=== PATIENT | female | born 1985 | race Caucasian/White ===

== ENCOUNTER 2019-12-16 06:16 | Inpatient (IN) | payer SELFPAY ==
[2019-12-16] VITALS (26 sets, daily range): BP systolic 113–137; BP diastolic 70–94; PULSE 99–127; RESP 18–37; TEMP 36.2–38.5; O2SAT 91–98; BMI 15.0
--- NOTE | 2019-12-16 06:39 | ECG_ITS ---
[facility] Test Date: 2019-12-16 Pat Name: Mónica Ko Department: Room: Gender: Female Manager System: : 1985 Requested By: Noelle Braun Order Number: [id number] Lynnette MD: Farshad Pollack M.D. Measurements Intervals [place] Rate: 112 P: 67 [place]: 177 QRS: 73 QRSD: 82 T: 70 QT: 378 QTc: 518 Interpretive Statements SINUS TACHYCARDIA POSSIBLE LEFT ATRIAL ENLARGEMENT [-0.1mV P WAVE IN V1/V2] MODERATE T-WAVE ABNORMALITY, CONSIDER ANTERIOR ISCHEMIA [-0.1+ mV T WAVE IN V3/V4] Compared to ECG 05/18/2018 23:05:40 T-wave abnormality now present Possible ischemia now present Incomplete right bundle-branch block no longer present Electronically Signed On 12-16-2019 10:27:56 CDT by Farshad Pollack M.D. [id number]
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
[2019-12-16] MEDS: sodium chloride 0.9% 1,000 ML 999 ML IV (06:51)
[2019-12-16] MEDS: famotidine 20 mg/2 mL INJ 40 MG IVP (06:52)
[2019-12-16] MEDS: LORazepam 2 mg/mL INJ 1 mL 1 MG IVP ×2 (06:52→07:46)
[2019-12-16] MEDS: ondansetron 2 mg/ML SDV 2 mL 4 MG IVP (06:52)
[2019-12-16 07:00] LABS: Glucose Point of Care 258 mg/dL (70-110)
[2019-12-16 07:10] LABS: Basophils % 0.4 %; Hematocrit 45.8 % (37.0-47.0); Hemoglobin 16.1 g/dL (11.5-15.3); Lymphocytes # 0.4 10^3/uL (0.8-4.8); Lymphocytes % 6.6 %; Mean Corpuscular HGB Conc 35.2 g/dL (30.0-36.0); Mean Corpuscular Hemoglobin 34.7 pg (28.0-34.0); Mean Corpuscular Volume 98.7 fL (81-99); Mean Platelet Volume 12.4 fL (7.4-10.4); Monocytes # 0.2 10^3/uL (0.2-0.9); Monocytes % 2.7 %; Neutrophils # 4.94 10^3/uL (1.8-7.7); Neutrophils % 90.1 %; Nucleated Red Blood Cells % 0 %; Platelet Count 32 10^3/cmm (130-400); Red Blood Count 4.64 10^6/uL (4.1-5.3); Red Cell Distribution Width 11.8 % (12.1-15.1); White Blood Count 5.5 10^3/uL (4.0-10.0)
[2019-12-16 07:33] LABS: HCG, Serum Qual Negative (Negative); Ketone (Acetest) Serum Negative (Negative)
[2019-12-16 07:34] LABS: Alanine Aminotransferase 58 U/L (0-33); Albumin Level 4.2 g/dL (3.5-5.2); Alkaline Phosphatase 127 IU/L (35-105); Blood Urea Nitrogen 4 mg/dL (6-20); Calcium 9.5 mg/dL (8.5-10.5); Carbon Dioxide 23 mmol/L (22-29); Chloride 79 mmol/L (98-107); Creatinine Clr Calc Pharmacy 77.1099; Globulin 2.7 g/dL (1.3-4.6); Glomerular Filtration Rate 115.9 mL/min (90-130); Glucose 242 mg/dL (65-115); Lipase 24 U/L (13-60); Magnesium 1.1 mg/dL (1.7-2.3); Osmolality Calculated 276 mOsm/kg (285-295); Sodium 131 mmol/L (136-145); Total Bilirubin 1.4 mg/dL (0.15-1.2); Total Protein 6.9 g/dL (6.6-8.7)
[2019-12-16 07:35] LABS: INR 0.95 (0.8-1.2)
[2019-12-16 07:43] LABS: ABG PCO2 31.4 mmHg (35-45); ABG PH Result 7.54 (7.35-7.45); Arterial Blood Gas Hematocrit 43.7 % (37-47); Base Excess ABG 4.8 mmol/L (-2.0-2.0); Blood Gas Operator Identificat amh; Blood Gas Sample Site Brachial, right; Blood Gas Sample Type Arterial; HCO3 ABG 26.9 mmol/L (22-26); Oxygen Device ROOM AIR; PO2 ABG 69.4 mmHg (80.0-100.0)
[2019-12-16] MEDS: magnesium sulfate premix 2 GM/50 ML PIGGYBACK IV (07:47)
[2019-12-16 08:27] LABS: Alcohol Level < 10 mg/dL (0-10)
[2019-12-16 08:29] LABS: Anion Gap 31.3 (5-19)
[2019-12-16 08:31] LABS: Aspartate Amino Transferase 96 U/L (0-32); Potassium 2.3 mmol/L (3.5-5.1)
[2019-12-16 08:33] LABS: Lactate (Lactic Acid level) 14.5 mmol/L (0.5-2.2)
--- NOTE | 2019-12-16 08:42 | XRR_ITS ---
PROCEDURE INFORMATION: Exam: XR Chest, 1 View Exam date and time: 12/16/2019 9:13 AM Age: 34 years old Clinical indication: Tachypnea; Patient HX: Recent panic attack TECHNIQUE: Imaging protocol: XR of the chest Views: 1 view. COMPARISON: CR Chest 1 [place] [id number] 10/21/2018 1:01 PM FINDINGS: Lungs: Extensive left basilar airspace disease, consistent with infiltrate, in the appropriate clinical setting. Hyperinflation and interstitial prominence. Pleural space: Small suspected left pleural effusion. Heart/Mediastinum: No cardiomegaly. Bones/joints: Unremarkable. XR/XR chest 1V portable [id number] IMPRESSION: 1. Extensive left basilar airspace disease, consistent with infiltrate, in the appropriate clinical setting. 2. Small suspected left pleural effusion.
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
[2019-12-16] MEDS: potassium chloride premix 40 MEQ/100 ML PREMIX 25 MEQ IV ×2 (09:16→14:57)
[2019-12-16] MEDS: iohexol 300 mg/mL 100 mL Btl IV (09:58)
--- NOTE | 2019-12-16 11:35 | PM.HP ---
Providers/Chief Complaint Admitting Physician: Adore Rachel MD Primary Care Provider: Nina Bright, VENEER GRADER-C Chief Complaint: PANIC ATTACK History of Present Illness Mónica Ko is a 34 year old female with past medical history of alcohol abuse and withdrawal was been admitted here in the past with suicidal ideation, who presented to the ED today with chief complaint of a panic attack. She states that she was in her usual state of health until about a week ago when she started to experience increased generalized weakness and lethargy. She states she has lost 80 pounds over the past week, though I suspect it has been a lot longer than that. He is complaining of some generalized abdominal pain, multiple episodes of nausea and vomiting, cough over the past week, black tarry stools as well when I asked her specifically. It is very difficult to obtain a history from her but she does not offer too many details apart from saying that she had a panic attack and her called the ambulance. On presentation to the ER she was noted to have multiple lab abnormalities including thrombocytopenia with platelet of 32 which is new for her. She is also noted to have a left lower lobe pneumonia on CT of the chest which may represent aspiration of vomitus contents. She had a hypokalemia with potassium of 2.3 and hypomagnesemia with magnesium of 1.1. Lactate 14. LFTs are also deranged. she looks severely malnourished with a BMI of only 15. She weighs 36 kg. Urine test is negative. Denies any bleeding from any other site except for the black tarry stools. She denies any fevers recently. There is no blood alcohol detected right now. States her last drink was 2 days ago. Denies any history of illicit drug use. no urine drug screen. States that she has not eaten in about one week. Review of Systems General: Reports: 10 or more systems reviewed and unremarkable except in HPI and below Const: Denies: fever(s), chills or body aches Eyes: Denies: change in vision, blurry vision or photophobia ENMT: Reports: hoarseness; Denies: throat pain, enlarged tonsils, odynophagia or nasal congestion Card: Denies: chest pain, palpitations, irregular heart rhythm, edema, swelling of feet/ankles, lightheadedness, pre-syncope, dyspnea on exertion or orthopnea Resp: Denies: dyspnea, productive cough, non-productive cough, wheezing, stridor, pain on inspiration, change in phlegm color, hemoptysis or chest congestion GI: Denies: abdominal pain, nausea, vomiting, hematemesis, coffee ground emesis, dysphagia, heartburn, diarrhea, constipation, GI cramping, change in stool character, hematochezia or melena : Denies: flank pain, difficulty voiding, dysuria, urinary frequency, urinary urgency, urinary hesitancy or hematuria Musc: Denies: neck pain, back pain, extremity pain, joint swelling, joint warmth or deformity Neuro: Denies: headache(s), numbness in extremities, weakness in extremities, sensory changes, difficulty walking, frequent falls, dizziness, vertigo, behavioral changes, Slurred speech present or seizure-like activity Psych: Denies: anxiety, depression, suicidal ideation or homicidal ideation Endo: Denies: polyuria, polydipsia, tired all the time, cold intolerance or hot flashes Michael/Lymph: Denies: easy bruising or easy bleeding Medications/Allergies Allergies Allergy/AdvReac Type Severity Reaction Status Date / Time No Known Allergies Allergy Verified 12/16/19 06:25 PFSH Acute PFSH: Medical History (Updated 12/16/19 @ 11:51 by Adore Rachel MD) Alcohol abuse Suicidal ideation Social History Smoking and tobacco status: current every day smoker Alcohol intake: current Alcohol intake frequency: other Alcohol type: beer Vitals/I&O/Wt Last Vital Signs Temp 97.2 F L 12/16/19 06:25 Pulse 119 H 12/16/19 10:09 Resp 19 H 12/16/19 10:09 BP 117/89 12/16/19 09:52 Pulse Ox 98 12/16/19 09:52 12/15/19 12/16/19 12/16/19 22:59 06:59 14:59 Intake Total 1050 / 1050 Balance 1050 / 1050 Weight last 48 hrs Weight 36.287 kg Physical Exam Narrative: EXAM NARRATIVE: GEN: Awake, alert and oriented, no acute distress , grossly malnourished, BMI 15, chronically ill appearing lady HEENT: edentulous , says her teeth were rotten , she waers dentures but does not have them currently, oropharyngeal candidiasis+ CVS: S1S2 N RS: CTA B/L Abd: Soft, nt/nd , bs+ , discomfort to palpation + MEDICAL RECORDS LIBRARY PROFESSOR: no focal neuro deficits Urinary Catheter Management^: Hernandez: Cath Placed During This Visit: yes Reason for Continuing Indwelling Catheter: Accurate Measurement of Urinary Output in Critically Ill Patients Urinary Catheter Date of Insertion: 12/16/19 Urinary Catheter Time of Insertion: 09:35 Data : 12/16/19 06:45 12/16/19 06:45 A&P Assessment and plan (1) Alcohol withdrawal: Status: Acute Qualifiers: Complication of substance-induced condition: with unspecified complication Qualified Code(s): F10.239 - Alcohol dependence with withdrawal, unspecified (2) Alcohol abuse: Status: Acute (3) Acute hypokalemia: Status: Acute (4) Hypomagnesemia: Status: Acute (5) Acidosis, lactic: Status: Acute (6) Left lower lobe pneumonia: Status: Acute Qualifiers: Pneumonia type: due to unspecified organism Qualified Code(s): J18.9 - Pneumonia, unspecified organism (7) Thrombocytopenia: Status: Acute (8) Oropharyngeal candidiasis: Status: Acute (9) Black stools: Status: Acute (10) Alcoholic hepatitis: Status: Acute Additional A&P Information Admit to ICU in view of alcohol withdrawal 1. h/o alcohol abuse, currently in withdrawal Suspect that the panic attack described by her may be related to alcohol withdrawal symptoms. She is currently is anxious, has coarse tremors. Assess CIWA score every 4 hours Use Ativan 2 mg IV push as determined by the CIWA score Aspiration precautions Seizure precautions #2 hypokalemia: Currently being repleted with IV potassium 3. Hypomagnesemia currently being repleted with IV mag the same 4. Lactic acidosis most likely related to dehydration from excessive nausea vomiting and GI losses in combination with malnutrition improving with hydration from 14-5. #5. Left lower lobe bronchopneumonia, suspected to be aspiration, however cannot rule out community acquired pneumonia Since been of cough over the past week. Empiric ceftriaxone and azithromycin to continue.. no current fever or leukocytosis. Check urine Legionella antigen. No known contact with covered persons, however will rule out by checking COVID-19 nasopharyngeal PCR #6 thrombocytopenia of unclear chronicity. Suspect this may be related to excessive alcohol use. Will check vitamin B12, folate levels. No spleno megaly has been noted on CAT scan of the abdomen #7 transaminitis, appears to be indicative of hepatitis, likely alcohol hepatitis. CT of the abdomen with diffuse fatty infiltration of the liver. No biliary ductal dilatation. No pancreatic mass or dilatation. Incidentally noted gastric antral wall thickening with dilated fluid-filled proximal stomach. No evidence of obstruction at this present time. There is mild wall thickening noted in the nondistended right colon. No acute visceral or bony injury in the abdomen or pelvis. Noted wall thickening in the nondistended esophagus. Together with oropharyngeal, cannot exclude esophageal candidiasis Check hepatitis serology #8 oropharyngeal candidiasis, with noted wall thickening in the esophagus which may be indicative of esophageal candidiasis. Start fluconazole 100 mg p.o. daily. given weight loss of 80 pounds, cachectic appearance, malnutrition, thrombocytopenia, suspected esophageal candidiasis, will screen for HIV. # Black tarry stools, check fecal occult blood. Protonix 40 mg IV every 12 in the interim. # vitamin C supplementation as cannot rule out scurvy Full code DVT ppx: contraindicated due to plt 32 Attestations Medical Necessity Statement*: needs >2 midnight admission for management of alcohol withdrawal, IV fluids, repletion of elctrolyte loss, treatment of pneumonia Coding Level of Care Code Acute Post Doc Fellowship for [facility] Fwd Diagnoses Alcohol withdrawal F10.239 Complication of substance-induced condition: with unspecified complication Alcohol abuse F10.10 Acute hypokalemia E87.6 Hypomagnesemia E83.42 Acidosis, lactic E87.2 Left lower lobe pneumonia J18.9 Pneumonia type: due to unspecified organism Thrombocytopenia D69.6 Oropharyngeal candidiasis B37.0 Black stools K92.1 Alcoholic hepatitis K70.10
[2019-12-16] MEDS: lidocaine 1% INJ 20 mL 5 ML IV (12:11)
[2019-12-16 12:14] LABS: Amphetamines Screen Urine Negative (Negative); Barbiturates Screen Urine Negative (Negative); Benzodiazepines Screen Urine Positive (Negative); Cocaine Screen Urine Negative (Negative); Glucose Urine UA Norm (Normal); Opiate Screen Urine Positive (Negative); PCP Screen Urine Negative (Negative); Specific Gravity, Urine 1.005 (1.005-1.030); THC Screen Urine Negative (Negative); Urine Appearance Clear (CLEAR); Urine Color Yellow (Yellow); pH Urine 8 (5-7)
[2019-12-16 12:15] LABS: Add Urine Culture? No; Add Urine Microscopic? YES; Bacteria Urine TRACE; Bilirubin Urine Neg (NEGATIVE); Blood Urine Neg (Negative); Ketones Urine Negative (Negative); Leukocyte Esterase Urine Negative (Negative); Nitrate Urine Negative (Negative); Protein Urine Trace (Negative); Sulfosalicylic Acid Urine Negative (Negative); Urobilinogen Urine 4 mg/dL (Negative); WBC Urine 0-4 /hpf (0-5)
[2019-12-16] MEDS: LORazepam 2 mg/mL INJ 1 mL IVP ×4 (12:32→23:37)
[2019-12-16] MEDS: cefTRIAXone 1,000 MG in sodium chloride 0.9% (plus) 50 ML 100 MG IV (12:32)
[2019-12-16] MEDS: pantoprazole 40 mg SDV IVP ×2 (12:33→23:26)
[2019-12-16] MEDS: azithromycin 500 MG in sodium chloride 0.9% 250 ML 250 MG IV (12:33)
[2019-12-16] MEDS: acetaminophen 325 mg Tablet 650 MG PO ×2 (13:22→23:37)
[2019-12-16 14:29] LABS: HIV 1 & 2 Antibody Non-Reactive (Non-Reactiv); HIV 1 & 2 Antigen Non-Reactive (Non-Reactiv)
[2019-12-16 14:34] LABS: Hepatitis A Antibody IgM Non-Reactive (Nonreactive); Hepatitis B Core AB, Total Non-Reactive (Nonreactive); Hepatitis B Surface Antigen Non-Reactive (Nonreactive); Hepatitis C Virus Antibody Non-Reactive (Nonreactive)
[2019-12-16 14:41] LABS: Thyroid Stimulating Hormone 0.69 uIU/mL (0.27-4.20); Vitamin B12 501 pg/mL (232-1245)
[2019-12-16] MEDS: piperacillin-tazobactam 3.375 GM in sodium chloride 0.9% (plus) 50 ML IV ×2 (14:57→21:22)
[2019-12-16 14:59] LABS: Acetaminophen < 5.0 ug/mL (10-30)
[2019-12-16 15:42] LABS: Folate Level > 20.0 ng/mL (4.8-37.3)
[2019-12-16 17:30] LABS: Lactic Sepsis W/Reflex 3.3 mmol/L (0.5-2.2)
[2019-12-16 17:43] LABS: Potassium 2.6 mmol/L (3.5-5.1)
[2019-12-16] MEDS: ascorbic acid 500 mg Tablet 1000 MG PO (18:00)
[2019-12-16 18:29] LABS: Reflex Lactate Order REFLEX LACTIC ORDERD
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
[2019-12-16 20:02] LABS: Lactic Acid level (Lactate) 3.3 mmol/L (0.5-2.2)
[2019-12-17] VITALS (15 sets, daily range): BP systolic 99–128; BP diastolic 70–107; PULSE 75–118; RESP 20–96; TEMP 37.1–38.7; O2SAT 92–97
[2019-12-17] MEDS: LORazepam 2 mg/mL INJ 1 mL IVP ×4 (02:46→16:00)
[2019-12-17 04:30] LABS: Basophils % 0.4 %; Eosinophils % 0.4 %; Hematocrit 36.4 % (37.0-47.0); Hemoglobin 12.3 g/dL (11.5-15.3); Lymphocytes # 0.7 10^3/uL (0.8-4.8); Lymphocytes % 14.6 %; Mean Corpuscular HGB Conc 33.8 g/dL (30.0-36.0); Mean Corpuscular Hemoglobin 35.2 pg (28.0-34.0); Mean Corpuscular Volume 104.3 fL (81-99); Mean Platelet Volume 12.7 fL (7.4-10.4); Monocytes # 0.1 10^3/uL (0.2-0.9); Monocytes % 2.1 %; Neutrophils # 3.89 10^3/uL (1.8-7.7); Nucleated Red Blood Cells % 0 %; Red Blood Count 3.49 10^6/uL (4.1-5.3); Red Cell Distribution Width 11.9 % (12.1-15.1); White Blood Count 4.9 10^3/uL (4.0-10.0)
[2019-12-17 04:40] LABS: Alanine Aminotransferase 45 U/L (0-33); Albumin Level 2.7 g/dL (3.5-5.2); Alkaline Phosphatase 96 IU/L (35-105); Aspartate Amino Transferase 113 U/L (0-32); Blood Urea Nitrogen 5 mg/dL (6-20); Calcium 8.3 mg/dL (8.5-10.5); Carbon Dioxide 30 mmol/L (22-29); Chloride 99 mmol/L (98-107); Globulin 2.7 g/dL (1.3-4.6); Glomerular Filtration Rate 257.8 mL/min (90-130); Glucose 91 mg/dL (65-115); Magnesium 1.8 mg/dL (1.7-2.3); Osmolality Calculated 279 mOsm/kg (285-295); Sodium 137 mmol/L (136-145); Total Bilirubin 0.9 mg/dL (0.15-1.2); Total Protein 5.4 g/dL (6.6-8.7)
[2019-12-17 05:37] LABS: Anion Gap 10.6 (5-19); Potassium 2.6 mmol/L (3.5-5.1)
[2019-12-17] MEDS: piperacillin-tazobactam 3.375 GM in sodium chloride 0.9% (plus) 50 ML IV ×2 (06:29→14:26)
[2019-12-17 06:49] LABS: Platelet Count 24 10^3/cmm (130-400)
[2019-12-17 06:51] LABS: Slide Review Slide Review Perform
[2019-12-17 07:29] LABS: Phosphorus 2.1 mg/dL (2.5-4.5)
[2019-12-17] MEDS: folic acid 1 mg Tablet PO (09:49)
[2019-12-17] MEDS: multivitamin therapeutic Tablet 1 TAB PO (09:49)
[2019-12-17] MEDS: potassium chloride premix 40 MEQ/100 ML PREMIX 25 MEQ IV (09:49)
[2019-12-17] MEDS: ascorbic acid 500 mg Tablet 1000 MG PO (09:50)
[2019-12-17] MEDS: fluconazole 100 mg Tablet PO (09:50)
[2019-12-17] MEDS: thiamine 100 mg Tablet PO (09:50)
[2019-12-17] MEDS: lidocaine 1% INJ 20 mL 5 ML IV (09:51)
--- NOTE | 2019-12-17 10:22 | PC.NURSE ---
pt anxious and restless wanting to go home not stay here ....discussed lab and status krider infusing at this time
[2019-12-17] MEDS: pantoprazole 40 mg SDV IVP (11:35)
--- NOTE | 2019-12-17 11:58 | PC.NURSE ---
Pt tearful, stating that she is wanting to go home. Staff spoke with her about her COVID test, pneumonia and potassium levels. Ativan given for her anxiety and CIWA score.
--- NOTE | 2019-12-17 13:34 | PM.PN ---
Subjective Subjective: Interval history: last fever at midnight yesetrday 101.7F, saturating 92% on RA, covid testing pending at this time. Plt count 24 from 32. No signs of bleeding anywhere. Occult blood is negative. HIV and hepatitis serology negative. T Bili normal, AST and ALT mildly elevated. K at 2.6. Blood cx negative thus far. Medications: Reviewed: Yes Vitals/I&O/Wt Last Vital Signs Temp 98.8 F 12/17/19 13:00 Pulse 104 H 12/17/19 13:00 Resp 21 H 12/17/19 13:00 BP 128/107 12/17/19 13:00 Pulse Ox 92 12/17/19 13:00 12/16/19 12/17/19 12/17/19 22:59 06:59 14:59 Intake Total 170 / 1540 50 / 1590 340 / 340 Output Total 900 / 900 400 / 1300 400 / 400 Balance -730 / 640 -350 / 290 -60 / -60 Weight last 48 hrs Weight 36.287 kg Physical Exam Narrative: EXAM NARRATIVE: GEN: Awake, alert and oriented, no acute distress, tearful as she misses her baby and wants to be home. CVS: S1S2 N RS: CTA B/L Abd: Soft, nt/nd , bs+ INSURANCE COORDINATOR: no focal neuro deficits Urinary Catheter Management^: Hernandez: Cath Placed During This Visit: yes Reason for Continuing Indwelling Catheter: Accurate Measurement of Urinary Output in Critically Ill Patients Urinary Catheter Date of Insertion: 12/16/19 Urinary Catheter Time of Insertion: 09:35 Data : 12/17/19 04:08 12/17/19 04:08 Micro: Microbiology 12/16/19 18:30 Occult Blood (FIT) - Final Stool - Stool Aspirate 12/16/19 13:35 Blood Culture - Preliminary Blood SPECIMEN COLLECTED 12/16/19 13:20 Blood Culture - Preliminary Blood SPECIMEN COLLECTED 12/16/19 11:30 Legionella Urinary Antigen - Final Urine,Voided A&P Assessment and plan (1) Alcohol withdrawal: Status: Acute Qualifiers: Complication of substance-induced condition: with unspecified complication Qualified Code(s): F10.239 - Alcohol dependence with withdrawal, unspecified (2) Alcohol abuse: Status: Acute (3) Acute hypokalemia: Status: Acute (4) Hypomagnesemia: Status: Acute (5) Acidosis, lactic: Status: Acute (6) Left lower lobe pneumonia: Status: Acute Qualifiers: Pneumonia type: due to unspecified organism Qualified Code(s): J18.9 - Pneumonia, unspecified organism (7) Thrombocytopenia: Status: Acute (8) Oropharyngeal candidiasis: Status: Acute (9) Black stools: Status: Acute (10) Alcoholic hepatitis: Status: Acute (11) Sepsis: Status: Acute Additional A&P Information Admit to ICU level of care # Sepsis: this was present on admission. Meets criteria by way of fever, tachycardia and focus of infection. # h/o alcohol abuse, currently in withdrawal Continue CIWA score every 4 hours, continues to have active signs of withdrawal with coarse tremors,agitation Use Ativan 2 mg IV push as determined by the CIWA score Aspiration precautions Seizure precautions #2 hypokalemia: Currently being repleted with IV potassium 3. Hypomagnesemia , improved with supplementation 4. Lactic acidosis most likely related to dehydration from excessive nausea vomiting and GI losses in combination with malnutrition improving with hydration from 14--> 5--> 3.3. #5. Left lower lobe bronchopneumonia, suspected to be aspiration, however cannot rule out community acquired pneumonia Since been of cough over the past week. Currently on Zosyn, add doxycycline for atypical and tick borne illness coverage. legionella antigen negative pending COVID-19 nasopharyngeal PCR. #6 thrombocytopenia of unclear chronicity. Suspect this may be related to excessive alcohol use. b12, folate levels within range. No spleno megaly has been noted on CAT scan of the abdomen. Transfuse if platelet <20 or any signs of bleeding FOBT negative #7 transaminitis, appears to be indicative of hepatitis, likely alcohol hepatitis. CT of the abdomen with diffuse fatty infiltration of the liver. No biliary ductal dilatation. No pancreatic mass or dilatation. Incidentally noted gastric antral wall thickening with dilated fluid-filled proximal stomach. No evidence of obstruction at this present time. There is mild wall thickening noted in the nondistended right colon. No acute visceral or bony injury in the abdomen or pelvis. Noted wall thickening in the nondistended esophagus. Together with oropharyngeal, cannot exclude esophageal candidiasis hepatitis serology negative #8 oropharyngeal candidiasis, with noted wall thickening in the esophagus which may be indicative of esophageal candidiasis. Start fluconazole 100 mg p.o. daily x 7 days negative HIV # depression : start mirtazipine, may help with appetite stimulation as well # Black tarry stools, FOBT negative, change protonix to po qd # vitamin C supplementation as cannot rule out scurvy Full code DVT ppx: contraindicated due to thrombocytopenia Attestations Medical Necessity Statement*: alcohol withdrawal, need for iv fluids and abx for sepsis from pneumonia Coding Level of Care Code Acute S[facility] Flaker for [facility] Fw Diagnoses Alcohol withdrawal F10.239 Complication of substance-induced condition: with unspecified complication Alcohol abuse F10.10 Acute hypokalemia E87.6 Hypomagnesemia E83.42 Acidosis, lactic E87.2 Left lower lobe pneumonia J18.9 Pneumonia type: due to unspecified organism Thrombocytopenia D69.6 Oropharyngeal candidiasis B37.0 Black stools K92.1 Alcoholic hepatitis K70.10 Sepsis A41.9
--- NOTE | 2019-12-17 13:45 | PC.NURSE ---
Pt getting increasingly agitated and tremors are getting worse. Asked Dr. Pinzon if additional meds may be considered. Awaiting call back.
[2019-12-17] MEDS: dextrose 5%-sod chloride 0.9% 1,000 ML 75 ML IV (14:25)
[2019-12-17] MEDS: potassium chloride ER 10 mEq Tablet 40 MEQ PO (14:26)
--- NOTE | 2019-12-17 16:42 | PC.NURSE ---
Pt insisting that she be discharged. she removed both IV's, cath tip intact. Dr. alberts notified. States to let her go AMA
--- NOTE | 2019-12-17 16:45 | PC.NURSE ---
discussed in length about her potassium levels, COVID testing and her pneumonia. Automation Analyst asked her to reconsider and stay, she continues to refuse. AMA papers filled out. Taken to ER via wheelchair, Roxy TUCKER, asked again if she was willing to reconsider and stay, again, she refused. Main ER staff at [facility] entry was notified to have pt to sit in ER waiting until her ride arrives.
[2019-12-17 18:12] LABS: Coronavirus Lab Test PTC SEE REPORT
--- NOTE | 2019-12-17 20:32 | PM.DCS ---
Discharge Providers Date of Admission: 12/16/19 08:54 Date of Discharge: December 17, 2019 Attending Provider at Admission: Adore Rachel MD Attending Provider at Discharge: Adore Rachel MD Primary Care Provider: PREETI Stinson Diagnoses at Discharge Discharge Diagnosis (1) Alcohol withdrawal: Status: Acute Qualifiers: Complication of substance-induced condition: with unspecified complication Qualified Code(s): F10.239 - Alcohol dependence with withdrawal, unspecified (2) Alcohol abuse: Status: Acute (3) Acute hypokalemia: Status: Acute (4) Hypomagnesemia: Status: Acute (5) Acidosis, lactic: Status: Acute (6) Left lower lobe pneumonia: Status: Acute Qualifiers: Pneumonia type: due to unspecified organism Qualified Code(s): J18.9 - Pneumonia, unspecified organism (7) Thrombocytopenia: Status: Acute (8) Oropharyngeal candidiasis: Status: Acute (9) Black stools: Status: Acute (10) Alcoholic hepatitis: Status: Acute (11) Sepsis: Status: Acute Reason for Visit Reason for Visit: PANIC ATTACK Hospital Course Discharge Summary: Left AMA. She was counselled about the dangers of leaving early including DTs, seizures, respiratory failure, sepsis but she insisted on leaving and called her to pick her up. See my progress note for further detail Physical Exam Narrative: EXAM NARRATIVE: GEN: Awake, alert and oriented, no acute distress, tearful as she misses her baby and wants to be home. CVS: S1S2 N RS: CTA B/L Abd: Soft, nt/nd , bs+ ASBESTOS HAZARD ABATEMENT WORKER: no focal neuro deficits Urinary Catheter Management^: Hernandez: Cath Placed During This Visit: yes Reason for Continuing Indwelling Catheter: Accurate Measurement of Urinary Output in Critically Ill Patients Urinary Catheter Date of Insertion: 12/16/19 Urinary Catheter Time of Insertion: 09:35 Discharge Data Data Completed and Pending: Completed Studies During Hospitalization Category Date Time Status CT chest abd pel w con* Urgent Cat Scan 12/16/19 08:[address] head wo con* 7 0450 Urgent Cat Scan 12/16/19 08:50 Completed XR chest 1V [place] ble [id number] Stat Exams 12/16/19 08:42 Completed Pending at discharge Category Date Time Status Blood Culture Rou aysha Lab 12/16/19 13:35 Results Labs from last 24 hours 12/17/19 12/17/19 12/17/19 04:08 04:08 04:08 WBC 4.9 RBC 3.49 L Hgb 12.3 Hct 36.4 L MCV 104.3 H D MCH 35.2 H MCHC 33.8 RDW 11.9 L Plt Count 24 L* MPV 12.7 H Neut % (Auto) 80.0 Lymph % (Auto) 14.6 [place] % (Auto) 2.1 Eos % (Auto) 0.4 Baso % (Auto) 0.4 Neut # (Auto) 3.89 Lymph # (Auto) 0.7 L [place] # (Auto) 0.1 L Eos # (Auto) 0.0 Baso # (Auto) 0.0 Nucleated RBC % (a uto) 0 Nucleated RBCs # 0.0 Sodium 137 Potassium 2.6 L* Chloride 99 Carbon Dioxide 30 H Anion Gap 10.6 BUN 5 L Creatinine 0.3 L GFR Calculation 257.8 H Glucose 91 Calculated Osmolal ity 279 L Lactate Calcium 8.3 L Phosphorus 2.1 L Magnesium 1.8 Total Bilirubin 0.9 AST 113 H ALT 45 H Alkaline Phosphata se 96 Total Protein 5.4 L D Albumin 2.7 L Globulin 2.7 Nasal/Oral COVID-1 9 PCR 12/17/19 12/16/19 04:08 13:20 WBC RBC Hgb Hct MCV MCH MCHC RDW Plt Count MPV Neut % (Auto) Lymph % (Auto) [place] % (Auto) Eos % (Auto) Baso % (Auto) Neut # (Auto) Lymph # (Auto) [place] # (Auto) Eos # (Auto) Baso # (Auto) Nucleated RBC % (a uto) Nucleated RBCs # Sodium Potassium Chloride Carbon Dioxide Anion Gap BUN Creatinine GFR Calculation Glucose Calculated Osmolal ity Lactate 1.0 Calcium Phosphorus Magnesium Total Bilirubin AST ALT Alkaline Phosphata se Total Protein Albumin Globulin Nasal/Oral COVID-1 9 PCR See report Vitals: Last Vital Signs Temp 98.8 F 12/17/19 13:00 Pulse 113 H 12/17/19 15:48 Resp 21 H 12/17/19 13:00 BP 128/107 12/17/19 13:00 Pulse Ox 95 12/17/19 15:48 Discharge Plan Discharge Patient Disposition: Left Against Medical Advice Condition: Stable Prescriptions: New amoxicillin-pot clavulanate [Augmentin] 875-125 mg tablet 1 tab PO BID 5 Days Qty: 10 RF: 0 doxycycline hyclate 100 mg capsule 100 mg PO BID 5 Days Qty: 10 RF: 0 Discharge Date/Time: 12/17/19 16:30 Discharge Attestations Time Spent in Discharge Care*: greater than 30 min Quality Metrics Clinical Quality Measures During this hospital stay, did patient experience: None Coding Level of Care Code Acute Nanoelectronics Engineer for [facility] Fwd Diagnoses Alcohol withdrawal F10.239 Complication of substance-induced condition: with unspecified complication Alcohol abuse F10.10 Acute hypokalemia E87.6 Hypomagnesemia E83.42 Acidosis, lactic E87.2 Left lower lobe pneumonia J18.9 Pneumonia type: due to unspecified organism Thrombocytopenia D69.6 Oropharyngeal candidiasis B37.0 Black stools K92.1 Alcoholic hepatitis K70.10 Sepsis A41.9
--- NOTE | 2019-12-18 12:13 | PC.RESP ---
Smoking Cessation information and a schedule of classes sent to patient.
--- NOTE | 2019-12-20 09:33 | PC.SOCIAL ---
Reviewed critial micro result 1 of 4 positive for Coagulase Negative Staphlococcus. Probable contaminant with Dr Rachel. Per Provider no further orders needed.
== END 2019-12-17 16:30 | disposition left against medical advice (07) | DRG 871 ==
LOC: ER 06:48 → ICU 09:39
PROVIDERS: Hospitalist; Admitting Provider Student in an Organized Health Care Education/Training Program; Emergency Provider Emergency Medicine; Family Provider Nurse Practitioner; PCP Nurse Practitioner; Visit Provider Student in an Organized Health Care Education/Training Program
DX: A41.9 Sepsis, unspecified organism (principal); J18.9 Pneumonia, unspecified organism; B37.0 Candidal stomatitis; E87.2 Acidosis; F10.239 Alcohol dependence with withdrawal, unspecified; F10.229 Alcohol dependence with intoxication, unspecified; E83.42 Hypomagnesemia; Z53.29 Procedure and treatment not carried out because of patient's decision for other reasons; E87.6 Hypokalemia; D69.6 Thrombocytopenia, unspecified; K70.10 Alcoholic hepatitis without ascites; F17.210 Nicotine dependence, cigarettes, uncomplicated
CPT/HCPCS: 12345; 36415; 36416; 36600; 51702; 70450; 71045; 71260; 74177; 80053; 80306; 80307; 81001; 81003; 82009; 82274; 82607; 82746; 82803; 82962; 83605; 83690; 83735; 84100; 84132; 84443; 84703; 85025; 85610; 86705; 86706; 86709; 86803; 87040; 87205; 87340; 87449; 87635; 87806; 93005; 96375; 99284; C9113; J0456; J0696; J2060; J2405; J2543; J3411; J3475; J3480; J3490; J7030; J7050; Q9967